=== PATIENT | female | born 1995 | race Caucasian/White ===

== ENCOUNTER 2025-07-22 01:46 | Emergency (ER) | payer MEDICAID ==
[~2025-07-22] VITALS: Ht 160 cm; Wt 102.4 kg
[2025-07-22 01:58] VITALS: O2SAT 99
[2025-07-22 02:34] LABS: CLARITY URINE CLEAR (CLEAR); COLOR URINE YELLOW (YELLOW); GLUCOSE URINE NEGATIVE (NEGATIVE); KETONES URINE NEGATIVE (NEGATIVE); LEUKOCYTE ESTERASE URINE 1+ (NEGATIVE); NITRITE URINE NEGATIVE (NEGATIVE); OCCULT BLOOD URINE 3+ (NEGATIVE); PH URINE 6.0 (4.5-8.0); PROTEIN URINE NEGATIVE (NEGATIVE); SPECIFIC GRAVITY URINE 1.014 (1.005-1.030); UROBILINOGEN URINE 0.2 E.U./dL (0.2-1.0)
[2025-07-22] MEDS: KETOROLAC 15MG/ML VIAL IM ONE (02:38)
[2025-07-22 02:44] LABS: BASOPHILS % 0.9 % (0.0-2.0); EOSINOPHILS % 3.3 % (0.0-5.0); HEMATOCRIT. 35.2 % (36.0-48.0); HEMOGLOBIN. 11.5 g/dL (12.0-16.0); LYMPHOCYTES % 15.5 % (20.0-50.0); MEAN PLATELET VOLUME 7.4 fl (7.4-10.4); MONOCYTES % 8.4 % (2.0-8.0); NEUTROPHILS % 71.9 % (40.0-76.0); PLATELET 319 x1000/uL (130-400); RED BLOOD CELL COUNT 4.38 mill/uL (4.2-5.4); RED CELL DISTRIBUTION WIDTH 14.9 % (11.6-14.6)
[2025-07-22 03:05] LABS: HCG SCREEN NEGATIVE
[2025-07-22 03:08] LABS: SQUAMOUS EPITHELIAL CELL URINE 3+ /lpf (RARE/1+)
[2025-07-22 03:09] LABS: BACTERIA URINE TRACE
[2025-07-22 03:10] LABS: FINE GRANULAR CASTS URINE 0-5 /lpf
[2025-07-22 03:11] LABS: CREATININE 0.9 mg/dL (0.6-1.0); UREA NITROGEN BLOOD 14 mg/dL (9-23)
[2025-07-22 03:13] LABS: ASPARTATE AMINOTRANSFERASE 15 IU/L (<34); BILIRUBIN DIRECT < 0.1 mg/dL (<=3.0); BILIRUBIN TOTAL 0.2 mg/dL (0.1-1.0); PROTEIN TOTAL 6.9 g/dL (6.0-8.3)
[2025-07-22] MEDS ORDERED: TAMS-54 MT (03:16)
[2025-07-22] MEDS ORDERED: NAPR-1176 MT (03:16)
[2025-07-22] MEDS ORDERED: CEPH500C2 MT (03:16)
[2025-07-22] MEDS: TAMSULOSIN HCL 0.4MG SR CAPSULE PO ONE (04:45)
[2025-07-22] MEDS: CEPHALEXIN 250MG CAPSULE PO ONE (04:46)
[2025-07-22 04:47] VITALS: BP 133/61; PULSE 77; RESP 18; TEMP 36.8; O2SAT 100
== END 2025-07-22 04:48 | disposition home or self-care (01) ==
LOC: ER 01:46
DX: N20.0 Calculus of kidney (principal); Z79.1 Long term (current) use of non-steroidal anti-inflammatories (NSAID); Z87.442 Personal history of urinary calculi
CPT/HCPCS: 99285; 74176; 80076; 80048; 81003; 81025; 84703; 83690; 85025; 87086; 36415; 96372; J1885